=== PATIENT | male | born 1975 | race Caucasian/White ===

== ENCOUNTER 2024-02-03 20:23 | Emergency (ER) | payer OTHER ==
[2024-02-03 20:42] VITALS: BP 153/101; PULSE 92; RESP 18; TEMP 99; BMI 26.6
== END 2024-02-03 23:06 | disposition home or self-care (01) ==
LOC: FER 20:23
DX: S52.124A Nondisplaced fracture of head of right radius, initial encounter for closed fracture (principal); W22.8XXA Striking against or struck by other objects, initial encounter
CPT/HCPCS: 73070-TC-RT-FY; 73110-TC-RT-FY; 99283-25